=== PATIENT | male | born 1995 | race Caucasian/White ===

== ENCOUNTER 2020-12-19 15:34 | Emergency (ER) | payer MEDICAID ==
[~2020-12-19] VITALS: Ht 180.3 cm; Wt 120.0 kg
[2020-12-19] MEDS ORDERED: ACETAMINOPHEN 325MG TABLET PO ONE (16:15)
[2020-12-19] MEDS ORDERED: TRAMADOL 50MG TABLET PO ONE (16:15)
[2020-12-19] MEDS ORDERED: TOPUD MT (18:12)
[2020-12-19 19:21] VITALS: BP 141/79
== END 2020-12-19 19:25 | disposition home or self-care (01) ==
LOC: ER 15:34
DX: M79.18 Myalgia, other site (principal); M25.511 Pain in right shoulder; W01.0XXA Fall on same level from slipping, tripping and stumbling without subsequent striking against object, initial encounter; Y93.F1 Activity, caregiving, bathing; Y92.9 Unspecified place or not applicable
CPT/HCPCS: 73030; 73200; 99284